=== PATIENT | male | born 1990 | race Two or more races ===

== ENCOUNTER 2017-01-09 21:19 | Emergency (ER) | payer OTHER ==
[~2017-01-09] VITALS: Ht 170.2 cm; Wt 86.2 kg
[2017-01-09] MEDS ORDERED: NKM (21:28)
--- NOTE | 2017-01-09 21:40 | Emergency Room Report ---
History of Present Illness General Chief Complaint: Syncope Source: Patient Present Illness HPI 26YOM walk-in from work with alleged syncope Patient working in hot kitchen, felt nausea, bilateral hand numbness, "seeing spots", blurry vision Lowered himself to ground Atraumatic - no pain Not sure if passed out Denies known medical history, familial SCD Denies precipitating chest pain, SOB, abd pain, fever/chills, headache Feels well otherwise Didnt eat at work Was very busy Allergies: Coded Allergies: No Known Allergies (Unverified , 01/09/17) Patient History Past Medical History: none Past Surgical History: none Pertinent Family History: none Social History: Denies: smoking, alcohol use, drug use Immunizations: UTD Reviewed Nursing Documentation: PMH: Agreed, PSxH: Agreed Review of Systems All Other Systems: negative except mentioned in HPI Physical Exam Vital Signs Date Time Temp Pulse Resp B/P (MAP) Pulse Ox O2 Delivery O2 Flow Rate FiO2 01/09/17 21:25 98.8 77 18 128/87 98 Sp02 EP Interpretation: reviewed, normal General Appearance: normal inspection, well appearing, no apparent distress, alert, GCS 15, non-toxic Head: normocephalic, atraumatic Eyes: bilateral eye PERRL, bilateral eye EOMI ENT: normal ENT inspection, hearing grossly normal, normal voice Neck: normal inspection, full range of motion, supple, no bony tend Respiratory: normal inspection, lungs clear, normal breath sounds, no respiratory distress, no retraction, no wheezing Cardiovascular #1: regular rate, rhythm, no edema Gastrointestinal: normal inspection, normal bowel sounds, non tender, soft, no guarding, no hernia Genitourinary: no CVA tenderness Musculoskeletal: normal inspection, back normal, normal range of motion, Noemi' s Sign negative Neurologic: normal inspection, alert, oriented x3, responsive, battery plate remover III-XII nml as tested, motor strength/tone normal, speech normal Psychiatric: normal inspection, judgement/insight normal, mood/affect normal Skin: normal inspection, normal color, no rash Lymphatic: normal inspection Medical Decision Making Diagnostic Impression: Primary Impression: Syncope Qualified Codes: R55 - Syncope and collapse ER Course VSS, Afebrile Well appearing No focal neuro deficits No concerning PMHx or familial history of SCD Likely vasovagal given precipitating symptoms ECG is NSR, no ischemia or arrhythmia Asymptomatic currently Tolerating PO Ambulating with steady gait DC home EKG Diagnostic Results Rate: normal Rhythm: NSR ST Segments: no acute changes ASA given to the pt in ED: No Rhythm Strip Diag. Results EP Interpretation: yes Rhythm: NSR, no PVC's, no ectopy Last Vital Signs Date Time Temp Pulse Resp B/P (MAP) Pulse Ox O2 Delivery O2 Flow Rate FiO2 01/09/17 21:25 98.8 77 18 128/87 98 Status: improved Disposition: HOME, SELF-CARE TOM BOYER M.D. Jan 09, 2017 21:40
[2017-01-09 22:16] VITALS: BP 129/76
== END 2017-01-09 22:17 | disposition home or self-care (01) ==
LOC: EMR 21:40
DX: R55 Syncope and collapse (principal)
CPT/HCPCS: 93005; 99282